=== PATIENT | male | born 1955 | race Caucasian/White ===

== ENCOUNTER 2017-12-23 08:12 | Emergency (ER) | payer OTHER ==
[2017-12-23 09:30] LABS: ADD UMIC YES; UR ASCORBIC ACID 20 mg/dL (NEGATIVE); UR BACTERIA FEW /HPF (NONE SEEN); UR BILIRUBIN (Dip) NEGATIVE (NEGATIVE); UR BLOOD (Dip) 2+ mg/dL (NEGATIVE); UR CLARITY CLOUDY (CLEAR); UR COLOR AMBER (YELLOW); UR GLUCOSE (Dip) 3+ mg/dL (NEGATIVE); UR KETONES (Dip) TRACE mg/dL (NEGATIVE); UR LEUKOCYTE ESTERASE (Dip) 2+ Leu/ul (NEGATIVE); UR MUCUS MANY /HPF (NONE SEEN); UR NITRITE (Dip) NEGATIVE (NEGATIVE); UR NONSQUAMOUS EPITHELIAL CELL 3 /HPF (NONE SEEN); UR RBC 60 /HPF (0-5); UR SPECIFIC GRAVITY (Dip) 1.028 (1.003-1.030); UR SQUAMOUS EPITHELIAL CELL MODERATE /HPF (FEW); UR TOTAL PROTEIN (Dip) 3+ mg/dl (NEGATIVE); UR UROBILINOGEN (Dip) 1+ mg/dL (NEGATIVE); UR WBC > 182 /HPF (0-5)
== END 2017-12-23 10:39 | disposition home or self-care (01) ==
LOC: FTE 08:12
DX: N39.0 Urinary tract infection, site not specified (principal); I10 Essential (primary) hypertension; E11.9 Type 2 diabetes mellitus without complications; Z79.01 Long term (current) use of anticoagulants; Z79.4 Long term (current) use of insulin; Z79.82 Long term (current) use of aspirin
CPT/HCPCS: 81001; 87086; 99283

== ENCOUNTER 2018-03-13 03:15 | Inpatient (IN) | payer OTHER ==
[2018-03-13 04:19] LABS: ADD MAN DIFF? NO
[2018-03-13 04:22] LABS: ABNORMAL IP MESSAGE 1; BASOPHIL # 0.1 10^3/ul (0.0-0.1); BASOPHILS % 0.2 % (0.0-2.0); HEMATOCRIT 39.9 % (42.0-52.0); HEMOGLOBIN 13.3 g/dl (14.0-18.0); LYMPHOCYTES # 1.8 10^3/ul (0.8-2.9); LYMPHOCYTES % 7.5 % (15.0-51.0); MEAN CORPUSCULAR HEMOGLOBIN 27.7 pg (29.0-33.0); MEAN CORPUSCULAR HGB CONC 33.3 g/dl (32.0-37.0); MEAN PLATELET VOLUME 11.2 fl (7.4-10.4); MONOCYTE # 1.5 10^3/ul (0.3-0.9); MONOCYTES % 6.2 % (0.0-11.0); NEUTROPHIL # 20.2 10^3/ul (1.6-7.5); NEUTROPHILS % 84.8 % (39.0-77.0); PLATELET COUNT 237 10^3/UL (140-415); POSITIVE DIFF @See below; RED BLOOD COUNT 4.81 10^6/ul (4.70-6.10); RED CELL DISTRIBUTION WIDTH 13.5 % (11.5-14.5)
[2018-03-13 04:22] LABS: WHITE BLOOD COUNT 23.8 10^3/ul (4.8-10.8)
[2018-03-13] MEDS: ONDANSETRON 4 MG INJ IV (04:34)
[2018-03-13] MEDS: morphine 4 MG/ML VIAL IV (04:34)
[2018-03-13 04:38] LABS: ALANINE AMINOTRANSFERASE 16 IU/L (13-69); ALBUMIN 3.9 g/dl (3.3-4.9); ALBUMIN/GLOBULIN RATIO 1.02; ALKALINE PHOSPHATASE 127 IU/L (42-121); ANION GAP 20 (8-16); ASPARTATE AMINO TRANSFERASE 14 IU/L (15-46); BILIRUBIN,INDIRECT 0.7 mg/dl (0-1.1); BILIRUBIN,TOTAL 0.7 mg/dl (0.2-1.3); BLOOD UREA NITROGEN 29 mg/dl (7-20); CALCIUM 9.4 mg/dl (8.4-10.2); CARBON DIOXIDE 27 mmol/L (21-31); CHLORIDE 98 mmol/L (97-110); CREATININE 1.25 mg/dl (0.61-1.24); GLUCOSE 368 mg/dl (70-220); POTASSIUM 4.7 mmol/L (3.5-5.1); SODIUM 140 mmol/L (135-144); TOTAL PROTEIN 7.7 g/dl (6.1-8.1)
[2018-03-13 04:41] LABS: LACTIC ACID 2.1 mmol/L (0.5-2.0)
[2018-03-13 04:41] LABS: PROTIME 15.4 Sec (11.9-14.9); PT RATIO 1.2
[2018-03-13 04:46] LABS: ADD UMIC YES; UR ASCORBIC ACID NEGATIVE (NEGATIVE); UR BACTERIA MODERATE /HPF (NONE SEEN); UR BILIRUBIN (Dip) NEGATIVE (NEGATIVE); UR BLOOD (Dip) 2+ mg/dL (NEGATIVE); UR BUDDING YEAST FEW /HPF (NONE SEEN); UR CLARITY SLIGHTLY CLOUDY (CLEAR); UR COLOR YELLOW (YELLOW); UR GLUCOSE (Dip) 3+ mg/dL (NEGATIVE); UR KETONES (Dip) TRACE mg/dL (NEGATIVE); UR LEUKOCYTE ESTERASE (Dip) 2+ Leu/ul (NEGATIVE); UR MUCUS FEW /HPF (NONE SEEN); UR NITRITE (Dip) NEGATIVE (NEGATIVE); UR RBC 4 /HPF (0-5); UR SPECIFIC GRAVITY (Dip) 1.022 (1.003-1.030); UR TOTAL PROTEIN (Dip) 2+ mg/dl (NEGATIVE); UR UROBILINOGEN (Dip) NEGATIVE (NEGATIVE); UR WBC 132 /HPF (0-5)
[2018-03-13 04:50] LABS: TROPONIN-I < 0.012 ng/ml (0.000-0.120)
[2018-03-13] MEDS: SODIUM CHLORIDE 0.9% 1L BAG IV* (05:15)
[2018-03-13] MEDS: CEFEPIME 2GM/50 ML (PMX) 50 ML IVPB (05:15)
[2018-03-13] MEDS: VANCOMYCIN 1 GM (PMX) 250 ML IVPB (05:16)
[2018-03-13 06:16] LABS: LACTIC ACID 1.4 mmol/L (0.5-2.0)
[2018-03-13] MEDS ORDERED: ALBUTEROL/IPRATROPIUM (NEB) 3 ML AMP HHN (06:30)
[2018-03-13] MEDS ORDERED: NACL 0.9% 3 ML SYG IV (06:30)
[2018-03-13] MEDS ORDERED: ONDANSETRON 4 MG INJ IV (06:30)
[2018-03-13] MEDS: SOD CHLORIDE 0.9% 1,000 ML IV ×3 (06:41→20:26)
[2018-03-13] MEDS: CEFTRIAXONE 1 GM/50 ML (PMX) 50 ML IVPB (06:41)
[2018-03-13 08:37] LABS: LACTIC ACID 1.1 mmol/L (0.5-2.0)
[2018-03-13] MEDS: BENAZEPRIL 5 MG TAB PO (08:57)
[2018-03-13] MEDS: ASPIRIN 325 MG TAB PO (08:57)
[2018-03-13] MEDS: FAMOTIDINE 20 MG TAB PO ×2 (08:57→20:31)
[2018-03-13] MEDS: NEBIVOLOL 5 MG TAB PO (08:57)
[2018-03-13] MEDS: HEPARIN 5,000 UNIT/0.5 ML VIAL SC ×2 (09:00)
[2018-03-13] MEDS: AMIODARONE 200 MG TAB PO (14:00)
[2018-03-13] MEDS: ACETAMINOPHEN 325 MG TAB PO (14:30)
[2018-03-13] MEDS ORDERED: GLUCOSE GEL 15 GRAM TUBE BUCCAL (17:00)
[2018-03-13] MEDS ORDERED: WARFARIN 5 MG TAB PO (17:00)
[2018-03-13] MEDS ORDERED: GLUCOSE GEL 15 GRAM TUBE PO ×2 (17:00)
[2018-03-13] MEDS ORDERED: DEXTROSE 50% 50 ML SYRINGE IV ×2 (17:00)
[2018-03-13] MEDS ORDERED: GLUCAGON 1 MG INJ IM (17:00)
[2018-03-13] MEDS: INSULIN ASPART [NOVOLOG] 3 ML PEN SC ×3 (17:47→20:34)
[2018-03-13] MEDS: HYDROCODONE/APAP (5/325) TAB PO (17:48)
[2018-03-13] MEDS: DOXYCYCLINE 100 MG in SOD CHLORIDE 0.9% 250 ML IVPB (20:26)
[2018-03-13] MEDS: INSULIN GLARGINE [LANtus] 3 ML PEN SC (20:30)
[2018-03-13] MEDS: morphine 2 MG INJ IV (20:34)
[2018-03-13] MEDS: ACCU-CHEK XX (20:44)
[2018-03-14] MEDS: morphine 2 MG INJ IV (03:15)
[2018-03-14] MEDS: CEFTRIAXONE 2 GM/50 ML (PMX) 50 ML IVPB (05:17)
[2018-03-14 05:45] LABS: ADD MAN DIFF? NO
[2018-03-14 05:49] LABS: BASOPHIL # 0.1 10^3/ul (0.0-0.1); BASOPHILS % 0.4 % (0.0-2.0); EOSINOPHILS # 0.1 10^3/ul (0.0-0.5); EOSINOPHILS % 0.4 % (0.0-7.0); HEMATOCRIT 35.2 % (42.0-52.0); HEMOGLOBIN 11.7 g/dl (14.0-18.0); LYMPHOCYTES # 1.4 10^3/ul (0.8-2.9); LYMPHOCYTES % 8.5 % (15.0-51.0); MEAN CORPUSCULAR HEMOGLOBIN 28.1 pg (29.0-33.0); MEAN CORPUSCULAR HGB CONC 33.2 g/dl (32.0-37.0); MEAN CORPUSCULAR VOLUME 84.6 fl (82.0-101.0); MEAN PLATELET VOLUME 11.4 fl (7.4-10.4); MONOCYTE # 1.2 10^3/ul (0.3-0.9); MONOCYTES % 7.3 % (0.0-11.0); NEUTROPHIL # 13.1 10^3/ul (1.6-7.5); NEUTROPHILS % 82.6 % (39.0-77.0); PLATELET COUNT 238 10^3/UL (140-415); RED BLOOD COUNT 4.16 10^6/ul (4.70-6.10); RED CELL DISTRIBUTION WIDTH 13.8 % (11.5-14.5)
[2018-03-14 05:49] LABS: WHITE BLOOD COUNT 15.8 10^3/ul (4.8-10.8)
[2018-03-14 06:23] LABS: ALANINE AMINOTRANSFERASE 21 IU/L (13-69); ALKALINE PHOSPHATASE 94 IU/L (42-121); ANION GAP 11 (8-16); ASPARTATE AMINO TRANSFERASE 10 IU/L (15-46); BILIRUBIN,INDIRECT 0.3 mg/dl (0-1.1); BILIRUBIN,TOTAL 0.3 mg/dl (0.2-1.3); BLOOD UREA NITROGEN 22 mg/dl (7-20); CALCIUM 8.7 mg/dl (8.4-10.2); CARBON DIOXIDE 28 mmol/L (21-31); CHLORIDE 104 mmol/L (97-110); CHOL/HDL RATIO 8.2 RATIO; CHOLESTEROL 132 mg/dl (100-200); CREATININE 0.95 mg/dl (0.61-1.24); GLUCOSE 174 mg/dl (70-220); HDL CHOLESTEROL 16 mg/dl (30-78); LDL CHOLESTEROL,CALCULATED 88 mg/dl; MAGNESIUM 1.5 mg/dl (1.7-2.5); POTASSIUM 4.9 mmol/L (3.5-5.1); SODIUM 138 mmol/L (135-144); TOTAL PROTEIN 6.3 g/dl (6.1-8.1); TRIGLYCERIDES 141 mg/dl (0-149)
[2018-03-14 07:27] LABS: HEMOGLOBIN A1C 10.4 % (0-5.9)
[2018-03-14] MEDS: INSULIN ASPART [NOVOLOG] 3 ML PEN SC ×7 (08:07→21:55)
[2018-03-14] MEDS: DOXYCYCLINE 100 MG in SOD CHLORIDE 0.9% 250 ML IVPB ×2 (08:56→21:49)
[2018-03-14] MEDS: NEBIVOLOL 5 MG TAB PO (08:57)
[2018-03-14] MEDS: FAMOTIDINE 20 MG TAB PO ×2 (08:57→21:51)
[2018-03-14] MEDS: ASPIRIN 325 MG TAB PO (08:57)
[2018-03-14] MEDS: BENAZEPRIL 5 MG TAB PO (08:57)
[2018-03-14] MEDS: HYDROCODONE/APAP (5/325) TAB PO ×3 (10:23→22:10)
[2018-03-14] MEDS: SOD CHLORIDE 0.9% 1,000 ML IV (12:57)
[2018-03-14] MEDS: MAGNESIUM SULFATE 2 GM/50 ML 50 ML IVPB (17:56)
[2018-03-14] MEDS: LATANOPROST 0.005% 2.5 ML OPH BOTH EYES (21:52)
[2018-03-14] MEDS: INSULIN GLARGINE [LANtus] 3 ML PEN SC (21:56)
[2018-03-14] MEDS ORDERED: morphine LIQ (10 MG/5 ML) CUP PO (23:30)
[2018-03-15] MEDS: ACCU-CHEK XX ×2 (02:31→21:14)
[2018-03-15 06:05] LABS: WHITE BLOOD COUNT 13.2 10^3/ul (4.8-10.8)
[2018-03-15 06:05] LABS: ADD MAN DIFF? NO; BASOPHIL # 0.1 10^3/ul (0.0-0.1); BASOPHILS % 0.5 % (0.0-2.0); EOSINOPHILS # 0.2 10^3/ul (0.0-0.5); EOSINOPHILS % 1.2 % (0.0-7.0); HEMATOCRIT 34.8 % (42.0-52.0); HEMOGLOBIN 11.6 g/dl (14.0-18.0); LYMPHOCYTES # 1.6 10^3/ul (0.8-2.9); LYMPHOCYTES % 12.4 % (15.0-51.0); MEAN CORPUSCULAR HEMOGLOBIN 28.1 pg (29.0-33.0); MEAN CORPUSCULAR HGB CONC 33.3 g/dl (32.0-37.0); MEAN CORPUSCULAR VOLUME 84.3 fl (82.0-101.0); MEAN PLATELET VOLUME 11.3 fl (7.4-10.4); MONOCYTES % 7.7 % (0.0-11.0); NEUTROPHIL # 10.2 10^3/ul (1.6-7.5); NEUTROPHILS % 77.4 % (39.0-77.0); PLATELET COUNT 263 10^3/UL (140-415); RED BLOOD COUNT 4.13 10^6/ul (4.70-6.10)
[2018-03-15] MEDS: CEFTRIAXONE 2 GM/50 ML (PMX) 50 ML IVPB (06:36)
[2018-03-15] MEDS: SOD CHLORIDE 0.9% 1,000 ML IV ×2 (06:36→21:14)
[2018-03-15 06:48] LABS: BLOOD UREA NITROGEN 16 mg/dl (7-20); CALCIUM 8.7 mg/dl (8.4-10.2); CARBON DIOXIDE 25 mmol/L (21-31); CHLORIDE 104 mmol/L (97-110); CREATININE 0.85 mg/dl (0.61-1.24); GLUCOSE 149 mg/dl (70-220); MAGNESIUM 1.7 mg/dl (1.7-2.5); PHOSPHORUS 3.5 mg/dl (2.5-4.9); SODIUM 140 mmol/L (135-144)
[2018-03-15] MEDS: HYDROCODONE/APAP (5/325) TAB PO ×3 (06:52→21:18)
[2018-03-15 06:59] LABS: ANION GAP 15 (8-16)
[2018-03-15 07:00] LABS: POTASSIUM 3.7 mmol/L (3.5-5.1)
[2018-03-15] MEDS: INSULIN ASPART [NOVOLOG] 3 ML PEN SC ×7 (08:50→21:00)
[2018-03-15] MEDS: FAMOTIDINE 20 MG TAB PO ×2 (08:51→21:11)
[2018-03-15] MEDS: ASPIRIN 325 MG TAB PO (08:51)
[2018-03-15] MEDS: NEBIVOLOL 5 MG TAB PO (08:52)
[2018-03-15] MEDS: BENAZEPRIL 5 MG TAB PO (08:52)
[2018-03-15] MEDS: DOXYCYCLINE 100 MG in SOD CHLORIDE 0.9% 250 ML IVPB (08:53)
[2018-03-15] MEDS: LEVOFLOXACIN 500 MG TAB PO (12:07)
[2018-03-15] MEDS: INSULIN GLARGINE [LANtus] 3 ML PEN SC (21:10)
[2018-03-15] MEDS: LATANOPROST 0.005% 2.5 ML OPH BOTH EYES (21:12)
[2018-03-16] MEDS: HYDROCODONE/APAP (5/325) TAB PO ×4 (02:12→19:52)
[2018-03-16 05:40] LABS: ADD MAN DIFF? NO
[2018-03-16 05:43] LABS: BASOPHIL # 0.1 10^3/ul (0.0-0.1); BASOPHILS % 0.6 % (0.0-2.0); EOSINOPHILS # 0.3 10^3/ul (0.0-0.5); EOSINOPHILS % 2.3 % (0.0-7.0); HEMATOCRIT 34.2 % (42.0-52.0); HEMOGLOBIN 11.2 g/dl (14.0-18.0); LYMPHOCYTES # 1.9 10^3/ul (0.8-2.9); LYMPHOCYTES % 15.7 % (15.0-51.0); MEAN CORPUSCULAR HEMOGLOBIN 27.7 pg (29.0-33.0); MEAN CORPUSCULAR HGB CONC 32.7 g/dl (32.0-37.0); MEAN CORPUSCULAR VOLUME 84.4 fl (82.0-101.0); MEAN PLATELET VOLUME 10.6 fl (7.4-10.4); MONOCYTE # 1.2 10^3/ul (0.3-0.9); NEUTROPHIL # 8.3 10^3/ul (1.6-7.5); NEUTROPHILS % 70.3 % (39.0-77.0); PLATELET COUNT 268 10^3/UL (140-415); RED BLOOD COUNT 4.05 10^6/ul (4.70-6.10); RED CELL DISTRIBUTION WIDTH 13.9 % (11.5-14.5)
[2018-03-16 05:43] LABS: WHITE BLOOD COUNT 11.8 10^3/ul (4.8-10.8)
[2018-03-16 06:05] LABS: ANION GAP 12 (8-16); BLOOD UREA NITROGEN 13 mg/dl (7-20); CALCIUM 8.7 mg/dl (8.4-10.2); CARBON DIOXIDE 28 mmol/L (21-31); CHLORIDE 104 mmol/L (97-110); CREATININE 0.92 mg/dl (0.61-1.24); GLUCOSE 147 mg/dl (70-220); POTASSIUM 3.8 mmol/L (3.5-5.1); SODIUM 140 mmol/L (135-144)
[2018-03-16] MEDS: LEVOFLOXACIN 500 MG TAB PO (06:27)
[2018-03-16] MEDS: INSULIN ASPART [NOVOLOG] 3 ML PEN SC ×7 (08:20→21:31)
[2018-03-16] MEDS: FAMOTIDINE 20 MG TAB PO ×2 (09:16→20:50)
[2018-03-16] MEDS: ASPIRIN 325 MG TAB PO (09:16)
[2018-03-16] MEDS: BENAZEPRIL 5 MG TAB PO (09:17)
[2018-03-16] MEDS: NEBIVOLOL 5 MG TAB PO (09:18)
[2018-03-16] MEDS: SOD CHLORIDE 0.9% 1,000 ML IV ×2 (11:10→13:35)
[2018-03-16] MEDS: LATANOPROST 0.005% 2.5 ML OPH BOTH EYES (20:51)
[2018-03-16] MEDS: INSULIN GLARGINE [LANtus] 3 ML PEN SC (21:30)
[2018-03-17] MEDS: HYDROCODONE/APAP (5/325) TAB PO ×3 (01:02→17:27)
[2018-03-17] MEDS: ACCU-CHEK XX (01:47)
[2018-03-17] MEDS: LEVOFLOXACIN 500 MG TAB PO (06:31)
[2018-03-17] MEDS: INSULIN ASPART [NOVOLOG] 3 ML PEN SC ×7 (08:00→21:00)
[2018-03-17] MEDS: ASPIRIN 325 MG TAB PO (08:16)
[2018-03-17] MEDS: FAMOTIDINE 20 MG TAB PO ×2 (08:16→21:00)
[2018-03-17] MEDS: NEBIVOLOL 5 MG TAB PO (09:16)
[2018-03-17] MEDS: BENAZEPRIL 5 MG TAB PO (09:17)
[2018-03-17 10:46] LABS: ADD MAN DIFF? NO
[2018-03-17 10:48] LABS: BASOPHIL # 0.1 10^3/ul (0.0-0.1); BASOPHILS % 0.5 % (0.0-2.0); EOSINOPHILS # 0.2 10^3/ul (0.0-0.5); EOSINOPHILS % 1.8 % (0.0-7.0); HEMATOCRIT 37.8 % (42.0-52.0); HEMOGLOBIN 12.5 g/dl (14.0-18.0); LYMPHOCYTES # 1.4 10^3/ul (0.8-2.9); LYMPHOCYTES % 12.8 % (15.0-51.0); MEAN CORPUSCULAR HEMOGLOBIN 27.4 pg (29.0-33.0); MEAN CORPUSCULAR HGB CONC 33.1 g/dl (32.0-37.0); MEAN CORPUSCULAR VOLUME 82.9 fl (82.0-101.0); MEAN PLATELET VOLUME 10.5 fl (7.4-10.4); MONOCYTES % 8.9 % (0.0-11.0); NEUTROPHIL # 7.9 10^3/ul (1.6-7.5); NEUTROPHILS % 74.4 % (39.0-77.0); PLATELET COUNT 339 10^3/UL (140-415); RED BLOOD COUNT 4.56 10^6/ul (4.70-6.10)
[2018-03-17 10:48] LABS: WHITE BLOOD COUNT 10.7 10^3/ul (4.8-10.8)
[2018-03-17 11:09] LABS: ANION GAP 12 (8-16); BLOOD UREA NITROGEN 14 mg/dl (7-20); CALCIUM 9.4 mg/dl (8.4-10.2); CARBON DIOXIDE 27 mmol/L (21-31); CHLORIDE 101 mmol/L (97-110); CREATININE 0.93 mg/dl (0.61-1.24); GLUCOSE 165 mg/dl (70-220); POTASSIUM 4.1 mmol/L (3.5-5.1); SODIUM 136 mmol/L (135-144)
[2018-03-17] MEDS: LATANOPROST 0.005% 2.5 ML OPH BOTH EYES (20:59)
[2018-03-17] MEDS: INSULIN GLARGINE [LANtus] 3 ML PEN SC (21:00)
[2018-03-18] MEDS: HYDROCODONE/APAP (5/325) TAB PO ×2 (00:58→06:55)
[2018-03-18] MEDS: ACCU-CHEK XX (02:00)
[2018-03-18] MEDS: LEVOFLOXACIN 500 MG TAB PO (06:53)
[2018-03-18] MEDS: INSULIN ASPART [NOVOLOG] 3 ML PEN SC ×4 (08:00→11:57)
[2018-03-18] MEDS: ASPIRIN 325 MG TAB PO (08:23)
[2018-03-18] MEDS: BENAZEPRIL 5 MG TAB PO (08:24)
[2018-03-18] MEDS: FAMOTIDINE 20 MG TAB PO (08:24)
[2018-03-18] MEDS: NEBIVOLOL 5 MG TAB PO (08:25)
== END 2018-03-18 12:24 | disposition home or self-care (01) | DRG 872 ==
LOC: E/R 03:15 → PP2 05:40
PROVIDERS: Internal Medicine
DX: A41.9 Sepsis, unspecified organism (principal); N39.0 Urinary tract infection, site not specified; I25.810 Atherosclerosis of coronary artery bypass graft(s) without angina pectoris; I50.20 Unspecified systolic (congestive) heart failure; N13.30 Unspecified hydronephrosis; B96.20 Unspecified Escherichia coli [E. coli] as the cause of diseases classified elsewhere; E78.5 Hyperlipidemia, unspecified; E11.65 Type 2 diabetes mellitus with hyperglycemia; H40.9 Unspecified glaucoma; I11.0 Hypertensive heart disease with heart failure; I48.0 Paroxysmal atrial fibrillation; I86.1 Scrotal varices; N45.3 Epididymo-orchitis; N41.9 Inflammatory disease of prostate, unspecified; Z95.1 Presence of aortocoronary bypass graft; Z87.442 Personal history of urinary calculi; Z79.4 Long term (current) use of insulin
CPT/HCPCS: 36415; 71045; 74176; 76870; 80048; 80053; 80061; 81001; 82962; 83036; 83605; 83735; 84100; 84484; 85025; 85610; 85730; 87040; 87045; 87086; 93005; 96374; 96375; 97161; 99291-25